=== PATIENT | female | born 1940 | race Caucasian/White ===

== ENCOUNTER 2020-04-10 16:39 | Inpatient (IN) | payer MEDICARE ==
[~2020-04-10] VITALS: Ht 160 cm; Wt 121.1 kg
[2020-04-10 17:28] LABS: BASOPHILS % 0.3 % (0.0-1.0); EOSINOPHILS # (AUTO) 0.1 (0.0-0.4); HEMATOCRIT 39.4 % (34.2-44.1); HEMOGLOBIN 11.8 g/dL (12.0-16.0); LYMPHOCYTES # (AUTO) 1.6 (1.0-3.2); LYMPHOCYTES % 13.5 % (18.0-39.1); MEAN CORPUSCULAR HEMOGLOBIN 22.7 pg (28-32); MEAN CORPUSCULAR HGB CONC 29.9 g/dL (31-35); MEAN CORPUSCULAR VOLUME 75.8 fL (81-99); MONOCYTES % 8.7 % (4.4-11.3); NEUTROPHILS # (AUTO) 8.8 (2.1-6.9); NEUTROPHILS % 76.2 % (38.7-80.0); PLATELET COUNT 263 x10e3/uL (140-360); RED CELL DISTRIBUTION WIDTH 19.8 % (11.7-14.4)
[2020-04-10] MEDS ORDERED: VANCOMYCIN 1GM/NS 250 ML 250 ML IV ONE (17:45)
[2020-04-10] MEDS ORDERED: INSULIN REGULAR, HUMAN 100 UNIT/1 ML 3ML VIAL SQ ONE (17:45)
[2020-04-10] MEDS ORDERED: LEVOFLOXACIN 500MG/D5W 100ML 100 ML IV ONE (17:45)
[2020-04-10 17:48] LABS: ALBUMIN 3.5 g/dL (3.5-5.0); ANION GAP 17.5 mmol/L (8-16); CALCIUM 8.6 mg/dL (8.4-10.2); CREATININE, SERUM 1.16 mg/dL (0.57-1.11); POTASSIUM 3.5 mmol/L (3.5-5.1)
[2020-04-10] MEDS ORDERED: MORPHINE SULFATE INJ 4 MG/ML INJ 1ML IV PRN (19:30)
[2020-04-10] MEDS ORDERED: DEXTROSE 50% SYRINGE 50 ML IV PRN (19:30)
[2020-04-10] MEDS ORDERED: ONDANSETRON HCL INJ 2MG/ML 2ML 2 MG/ML VIAL IV PRN (19:30)
[2020-04-10] MEDS ORDERED: SODIUM CHLORIDE 0.9% 1000ML 1,000 ML IV ONE (19:30)
[2020-04-10] MEDS: INSULIN REGULAR, HUMAN 100 UNIT/1 ML 3ML VIAL SQ SCH (20:59)
[2020-04-10 21:35] VITALS: BP 149/52
[2020-04-10] MEDS ORDERED: SODIUM CHLORIDE 0.9% 1000ML 1,000 ML ONE (22:58)
[2020-04-10 23:35] VITALS: BP 149/52
[2020-04-10 23:45] VITALS: BP 149/52
[2020-04-10] MEDS ORDERED: POTASSIUM CHLO10 ME1 PO (23:54)
[2020-04-10] MEDS ORDERED: HYDRALAZINE HCL10 MG PO (23:55)
[2020-04-11] VITALS (9 sets, daily range): BP systolic 115–152; BP diastolic 54–79
[2020-04-11] MEDS ORDERED: BENADRYL25 M1 PO
[2020-04-11] MEDS ORDERED: CRESTOR20 MG PO (00:02)
[2020-04-11] MEDS ORDERED: CLARITIN PO (00:03)
[2020-04-11] MEDS ORDERED: CLOPIDOGREL75 MG PO (00:04)
[2020-04-11] MEDS ORDERED: WARFARIN SODIUM3 MG PO ×2 (00:05→00:07)
[2020-04-11] MEDS ORDERED: ISOSORBIDE MONO20 MG PO (00:13)
[2020-04-11] MEDS ORDERED: NITROGLYCERIN0.4 MG SL (00:13)
[2020-04-11] MEDS ORDERED: BUMETANIDE2 MG PO (00:18)
[2020-04-11] MEDS ORDERED: MUCINEX DM ER1 EACH PO (00:28)
[2020-04-11] MEDS ORDERED: NEURONTIN100 MG PO (01:33)
[2020-04-11] MEDS ORDERED: TIZANIDINE HCL4 MG PO (01:34)
[2020-04-11] MEDS ORDERED: GABAPENTIN 100 MG CAP PO ONE (01:45)
[2020-04-11] MEDS ORDERED: TIZANIDINE HCL 4 MG TAB PO ONE ×2 (01:45→02:00)
[2020-04-11] MEDS ORDERED: PROVENTIL HFA6.7 GM INH (02:53)
[2020-04-11] MEDS: VANCOMYCIN 1GM/NS 250 ML 250 ML IV SCH ×2 (05:19→18:09)
[2020-04-11 05:46] LABS: BASOPHILS % 0.4 % (0.0-1.0); EOSINOPHILS # (AUTO) 0.1 (0.0-0.4); EOSINOPHILS % 1.1 % (0.0-6.0); HEMATOCRIT 36.3 % (34.2-44.1); LYMPHOCYTES # (AUTO) 1.1 (1.0-3.2); LYMPHOCYTES % 11.3 % (18.0-39.1); MEAN CORPUSCULAR HGB CONC 30.3 g/dL (31-35); MEAN CORPUSCULAR VOLUME 75.9 fL (81-99); MONOCYTES % 9.8 % (4.4-11.3); NEUTROPHILS # (AUTO) 7.4 (2.1-6.9); NEUTROPHILS % 76.9 % (38.7-80.0); PLATELET COUNT 209 x10e3/uL (140-360); RED BLOOD COUNT 4.78 x10e6/uL (3.6-5.1); RED CELL DISTRIBUTION WIDTH 19.3 % (11.7-14.4)
[2020-04-11 06:21] LABS: ALBUMIN 2.9 g/dL (3.5-5.0); ANION GAP 13.1 mmol/L (8-16); CALCIUM 8.2 mg/dL (8.4-10.2); CREATININE, SERUM 0.97 mg/dL (0.57-1.11); POTASSIUM 3.1 mmol/L (3.5-5.1)
[2020-04-11] MEDS ORDERED: TRAMADOL HCL 50 MG TAB PO PRN (06:45)
[2020-04-11] MEDS ORDERED: POTASSIUM CHLORIDE 10MEQ EA PO ONE (07:45)
[2020-04-11 07:52] LABS: INR 2.5; PROTHROMBIN TIME 28.2 seconds (11.9-14.5)
[2020-04-11] MEDS ORDERED: LEVOTHYROXINE75 MCG PO (07:56)
[2020-04-11] MEDS: HYDRALAZINE HCL 10 MG TAB PO SCH ×2 (08:17→17:00)
[2020-04-11] MEDS: CLOPIDOGREL BISULFATE 75 MG TAB PO SCH (08:18)
[2020-04-11] MEDS: LORATADINE 10 MG TAB PO SCH (08:18)
[2020-04-11] MEDS: INSULIN REGULAR, HUMAN 100 UNIT/1 ML 3ML VIAL SQ SCH ×4 (08:20→21:00)
[2020-04-11] MEDS: LEVOFLOXACIN 500MG/D5W 100ML 100 ML IV SCH (16:59)
[2020-04-11] MEDS: WARFARIN SOD 3 MG TAB PO SCH (17:01)
[2020-04-11] MEDS ORDERED: NOVOLIN N100 UNIT/1 (19:38)
[2020-04-11] MEDS ORDERED: NOVOLIN R100 UNIT/1 (19:38)
[2020-04-11] MEDS ORDERED: TIZANIDINE HCL 4 MG TAB PO PRN (21:00)
[2020-04-11] MEDS ORDERED: CRESTOR 10MG PO SCH (21:00)
[2020-04-11] MEDS: CRESTOR 10MG PO SCH (21:18)
[2020-04-11] MEDS: BUMETANIDE 1 MG TAB PO SCH (21:18)
[2020-04-11] MEDS: GABAPENTIN 100 MG CAP PO SCH (21:19)
[2020-04-11] MEDS: GUAIFENESIN 600MG/DEXTROMETHORPHAN 30MG TABSR PO SCH (21:19)
[2020-04-11] MEDS: ISOSORBIDE MONONITRATE 30 MG TAB CR PO SCH (21:19)
[2020-04-12] VITALS (8 sets, daily range): BP systolic 111–142; BP diastolic 49–81
[2020-04-12 06:13] LABS: BASOPHILS # (AUTO) 0.1 (0.0-0.1); BASOPHILS % 0.5 % (0.0-1.0); EOSINOPHILS # (AUTO) 0.2 (0.0-0.4); EOSINOPHILS % 1.9 % (0.0-6.0); LYMPHOCYTES # (AUTO) 1.3 (1.0-3.2); LYMPHOCYTES % 13.5 % (18.0-39.1); MEAN CORPUSCULAR HEMOGLOBIN 23.1 pg (28-32); MEAN CORPUSCULAR HGB CONC 30.6 g/dL (31-35); MEAN CORPUSCULAR VOLUME 75.6 fL (81-99); MONOCYTES % 10.5 % (4.4-11.3); NEUTROPHILS # (AUTO) 7.2 (2.1-6.9); NEUTROPHILS % 73.1 % (38.7-80.0); PLATELET COUNT 218 x10e3/uL (140-360); RED BLOOD COUNT 4.76 x10e6/uL (3.6-5.1); RED CELL DISTRIBUTION WIDTH 19.3 % (11.7-14.4)
[2020-04-12 06:41] LABS: ANION GAP 14.2 mmol/L (8-16); BLOOD UREA NITROGEN 11 mg/dL (7-26); BUN/CREATININE RATIO 13 (6-25); CARBON DIOXIDE 21 mmol/L (22-29); CHLORIDE 109 mmol/L (98-107); CREATININE, SERUM 0.88 mg/dL (0.57-1.11); EST GLOMERULAR FILTRATION RATE > 60 ML/MIN (60-); GLUCOSE 73 mg/dL (74-118); POTASSIUM 3.2 mmol/L (3.5-5.1); SODIUM 141 mmol/L (136-145)
[2020-04-12] MEDS: INSULIN REGULAR, HUMAN 100 UNIT/1 ML 3ML VIAL SQ SCH ×4 (07:30→21:00)
[2020-04-12] MEDS: VANCOMYCIN 1GM/NS 250 ML 250 ML IV SCH ×2 (08:39→20:20)
[2020-04-12] MEDS: HYDRALAZINE HCL 10 MG TAB PO SCH ×2 (08:41→16:53)
[2020-04-12] MEDS: CLOPIDOGREL BISULFATE 75 MG TAB PO SCH (08:42)
[2020-04-12] MEDS: LORATADINE 10 MG TAB PO SCH (08:42)
[2020-04-12 10:16] LABS: INR 2.33; PROTHROMBIN TIME 26.7 seconds (11.9-14.5)
[2020-04-12] MEDS ORDERED: POTASSIUM CHLORIDE 20 MEQ TAB CR PO NR (15:15)
[2020-04-12] MEDS: LEVOFLOXACIN 500MG/D5W 100ML 100 ML IV SCH (16:53)
[2020-04-12] MEDS: WARFARIN SOD 3 MG TAB PO SCH (16:54)
[2020-04-12] MEDS ORDERED: PANTOPRAZOLE SOD 40 MG TABEC PO SCH (17:00)
[2020-04-12] MEDS ORDERED: ONDANSETRON HCL 4 MG ORAL DISINTEGRATING TAB PO PRN (18:00)
[2020-04-12] MEDS ORDERED: DIPHENHYDRAMINE HCL 25 MG CAP PO SCH (21:00)
[2020-04-12] MEDS: GUAIFENESIN 600MG/DEXTROMETHORPHAN 30MG TABSR PO SCH (22:19)
[2020-04-12] MEDS: GABAPENTIN 100 MG CAP PO SCH (22:19)
[2020-04-12] MEDS: CRESTOR 10MG PO SCH (22:19)
[2020-04-12] MEDS: BUMETANIDE 1 MG TAB PO SCH (22:19)
[2020-04-12] MEDS: ISOSORBIDE MONONITRATE 30 MG TAB CR PO SCH (22:19)
[2020-04-13] VITALS: BP 130/58
[2020-04-13 04:00] VITALS: BP 113/72
[2020-04-13] MEDS: VANCOMYCIN 1GM/NS 250 ML 250 ML IV SCH (06:28)
[2020-04-13] MEDS ORDERED: PANTOPRAZOLE SOD 40 MG TABEC PO SCH (07:30)
[2020-04-13] MEDS: INSULIN REGULAR, HUMAN 100 UNIT/1 ML 3ML VIAL SQ SCH ×2 (07:30→11:30)
[2020-04-13 08:15] VITALS: BP 129/62
[2020-04-13] MEDS: HYDRALAZINE HCL 10 MG TAB PO SCH (08:38)
[2020-04-13] MEDS: LORATADINE 10 MG TAB PO SCH (08:38)
[2020-04-13] MEDS: CLOPIDOGREL BISULFATE 75 MG TAB PO SCH (08:38)
[2020-04-13 08:43] LABS: BASOPHILS # (AUTO) 0.1 (0.0-0.1); BASOPHILS % 0.5 % (0.0-1.0); EOSINOPHILS # (AUTO) 0.2 (0.0-0.4); EOSINOPHILS % 2.2 % (0.0-6.0); HEMATOCRIT 37.9 % (34.2-44.1); HEMOGLOBIN 11.4 g/dL (12.0-16.0); LYMPHOCYTES # (AUTO) 1.6 (1.0-3.2); LYMPHOCYTES % 16.2 % (18.0-39.1); MEAN CORPUSCULAR HEMOGLOBIN 23.1 pg (28-32); MEAN CORPUSCULAR HGB CONC 30.1 g/dL (31-35); MEAN CORPUSCULAR VOLUME 76.9 fL (81-99); MONOCYTES # (AUTO) 0.9 (0.2-0.8); MONOCYTES % 9.1 % (4.4-11.3); NEUTROPHILS # (AUTO) 7.1 (2.1-6.9); NEUTROPHILS % 71.7 % (38.7-80.0); PLATELET COUNT 227 x10e3/uL (140-360); RED BLOOD COUNT 4.93 x10e6/uL (3.6-5.1); RED CELL DISTRIBUTION WIDTH 18.9 % (11.7-14.4)
[2020-04-13 08:53] LABS: INR 2.05
[2020-04-13 09:03] LABS: ANION GAP 14.2 mmol/L (8-16); BLOOD UREA NITROGEN 10 mg/dL (7-26); BUN/CREATININE RATIO 11 (6-25); CARBON DIOXIDE 23 mmol/L (22-29); CHLORIDE 108 mmol/L (98-107); CREATININE, SERUM 0.89 mg/dL (0.57-1.11); EST GLOMERULAR FILTRATION RATE > 60 ML/MIN (60-); GLUCOSE 99 mg/dL (74-118); POTASSIUM 3.2 mmol/L (3.5-5.1); SODIUM 142 mmol/L (136-145)
[2020-04-13 09:54] VITALS: BP 129/62
[2020-04-13 12:06] VITALS: BP 152/72
[2020-04-13] MEDS ORDERED: POTASSIUM CHLORIDE 20 MEQ TAB CR PO ONE (14:45)
[2020-04-13] MEDS ORDERED: LEVOFLOXACIN250 MG PO (15:14)
[2020-04-13 16:07] VITALS: BP 159/65
[2020-04-13] MEDS ORDERED: WARFARIN SOD 5 MG TAB PO SCH (17:00)
== END 2020-04-13 15:53 | disposition home or self-care (01) | DRG 603 ==
LOC: ER 16:58 → ERHOLD 19:33 → MED/SURG3 21:06 → OBSVTOIN 04-12 15:08
PROVIDERS: ADMIT Internal Medicine; ATTEND Internal Medicine
DX: L03.115 Cellulitis of right lower limb (principal); I42.9 Cardiomyopathy, unspecified; I10 Essential (primary) hypertension; J45.909 Unspecified asthma, uncomplicated; E87.6 Hypokalemia; G47.30 Sleep apnea, unspecified; I25.10 Atherosclerotic heart disease of native coronary artery without angina pectoris; I48.91 Unspecified atrial fibrillation; Z79.01 Long term (current) use of anticoagulants; Z95.0 Presence of cardiac pacemaker; E11.9 Type 2 diabetes mellitus without complications; Z20.828 Contact with and (suspected) exposure to other viral communicable diseases
CPT/HCPCS: 36415; 80048; 80053; 80202; 82948; 83880; 84550; 85025; 85610; 87040; 93971; 94660; 99284; G0378; J1817; J1956; J3370; J7030; U0002